=== PATIENT | male | born 1980 | race African-American/Black ===

== ENCOUNTER → 2017-08-28 | Outpatient (CLI) | payer MEDICAID ==
--- NOTE | 2017-08-28 09:26 | RADIOLOGY REPORT (SQ) ---
EXAM DESCRIPTION: KNEE LEFT 3 VIEWS COMPLETED DATE/TIME: 08/28/2017 8:59 am REASON FOR STUDY: POSTERIOR LEFT KNEE PAIN COMPARISON: None. NUMBER OF VIEWS: Three views left knee. LIMITATIONS: None. FINDINGS: No fracture or bone lesion. Maintained joint spaces. Moderate joint effusion. OTHER: No other significant finding. IMPRESSION: Joint effusion. Otherwise normal radiographs left knee. TECHNICAL DOCUMENTATION: JOB ID: [id number]
== END ==
LOC: OD 08:37
PROVIDERS: ATTEND Family Medicine
DX: M25.562 Pain in left knee (principal)

== ENCOUNTER 2017-09-28 19:15 | Emergency (ER) | payer BC ==
[2017-09-28 19:33] VITALS: BP 146/84
--- NOTE | 2017-09-28 20:56 | RADIOLOGY REPORT (SQ) ---
EXAM DESCRIPTION: CHEST PA/LAT COMPLETED DATE/TIME: 09/28/2017 8:47 pm REASON FOR STUDY: cp cough COMPARISON: None. EXAM PARAMETERS: NUMBER OF VIEWS: two views TECHNIQUE: Digital Frontal and Lateral radiographic views of the chest acquired. RADIATION DOSE: NA LIMITATIONS: none FINDINGS: LUNGS AND PLEURA: No opacities, masses or pneumothorax. No pleural effusion. MEDIASTINUM AND HILAR STRUCTURES: No masses or contour abnormalities. HEART AND VASCULAR STRUCTURES: Heart normal size. No evidence for failure. BONES: No acute findings. HARDWARE: None in the chest. OTHER: No other significant finding. IMPRESSION: NO SIGNIFICANT RADIOGRAPHIC FINDING IN THE CHEST. TECHNICAL DOCUMENTATION: JOB ID: [id number] [employer]- All Rights Reserved
--- NOTE | 2017-09-28 22:04 | ER Document Report ---
ED General - General Chief Complaint: Painful Cough Stated Complaint: PAINFUL TO BREATH Time Seen by Provider: 09/28/17 22:02 Notes: Patient is a pleasant 36-year-old male who presents with complaint of some pain in his chest whenever he coughs. Patient says he had coughing illness for several days. Now whenever he coughs or moves a certain way he gets pain over the substernal right side of his chest. He says he does not have the pain without coughing or movement. She said he did have some pain in his left leg over a month ago. He went to his primary care doctor and they arrange for an x- ray but he never got this obtained. He says that pain has been gone for a month now he has had no further pain. No swelling or edema in his legs. No history of PE or DVT. No other complaints at this time. TRAVEL OUTSIDE OF THE [place] IN LAST 30 DAYS: No - Related Data Allergies/Adverse Reactions: No Known Allergies Allergy (Verified 04/09/16 11:43) Past Medical History - Social History Smoking Status: Unknown if Ever Smoked Frequency of alcohol use: None Drug Abuse: None Family History: Reviewed & Not Pertinent Patient has suicidal ideation: No Patient has homicidal ideation: No Renal/ Medical History: Denies: Hx Peritoneal Dialysis - Immunizations Immunizations up to date: Yes Hx Diphtheria, Pertussis, Tetanus Vaccination: Yes - unknown Review of Systems - Review of Systems Notes: My Normal Review Basic REVIEW OF SYSTEMS: CONSTITUTIONAL : Denies fever, chills, or sweats. Denies recent illness. EENT: Denies eye, ear, throat, or mouth pain or symptoms. Denies nasal or sinus congestion. CARDIOVASCULAR: Pain with cough. RESPIRATORY: Pain in lungs when coughing. GASTROINTESTINAL: Denies abdominal pain. Denies nausea, vomiting, or diarrhea. Denies constipation. Last BM: LMP: MUSCULOSKELETAL: Denies neck or back pain or joint pain or swelling. SKIN: Denies rash or skin lesions. NEUROLOGICAL: Denies altered mental status or loss of consciousness. Denies headache. Denies weakness or paralysis or loss of use of either side. Denies problems with gait or speech. Denies sensory or motor loss. ALL OTHER SYSTEMS REVIEWED AND NEGATIVE. Physical Exam - Vital signs Vitals: Temp Pulse Resp BP Pulse Ox 99.1 F 74 20 146/84 H 95 09/28/17 19:30 01/16/18 19:30 09/28/17 19:30 09/28/17 19:30 09/28/17 19:30 - Notes Notes: General Appearance: Well nourished, alert, cooperative, no acute distress, no obvious discomfort. Well-appearing. Vitals: reviewed, See vital signs table. Head: no swelling or tenderness to the head Eyes: PERRL, EOMI, Conjuctiva clear Mouth: No decreasd moisture Neck: Supple, no neck tenderness, No thyromegaly Chest wall: Some reproducible pain to palpation of the right costochondral junction. Lungs: No wheezing, No rales, No rhonci, No accessory muscle use, good air exchange bilaterally. Heart: Normal rate, Regular rythm, No murmur, no rub Extremities: strength 5/5 in all extremities, good pulses in all extremities, no swelling or tenderness in the extremities, no edema. Skin: warm, dry, appropriate color, no rash Neuro: speech clear, oriented x 3, normal affect, responds appropriately to questions. Course - Re-evaluation Re-evalutation: 09/29/17 05:42 Patient's pain seems very consistent with that of pleurisy and may be some costochondritis as well. I do not suspect PE. Pain started after patient still having coughing. Patient does not have tachycardia tachypnea or hypoxemia. I feel the patient safe to be discharged home. Encouraged him to return to ER if he has worsening pain or feels unwell. Patient agrees with plan will be discharged home. Dictation of this chart was performed using voice recognition software; therefore, there may be some unintended grammatical errors. - Vital Signs Vital signs: Temp Pulse Resp BP Pulse Ox 99.1 F 74 20 146/84 H 95 09/28/17 19:30 09/28/17 19:30 09/28/17 19:30 09/28/17 19:30 09/28/17 19:30 - EKG Interpretation by Me Additional EKG results interpreted by me: 09/28/17 22:02 EKG is reviewed and interpreted by me. EKG shows normal sinus rhythm rate of [address] segment elevation or depression. No ischemic T-wave inversions. [place] interval, QRS duration, QTc intervals are within normal range. No old EKG available for comparison. Discharge - Discharge Disposition: HOME, SELF-CARE Additional Instructions: Pleurisy Your chest pain has been diagnosed as pleuritis (pleurisy). This is an inflammation of the surface of the lung tissue. It can be caused by a virus or , occasionally, old scar tissue. It is painful but, for the most part, not a serious problem. This pain is usually made worse by deep breathing, coughing, or sudden movements of the upper body or arms. The treatment is relief of symptoms. It includes rest, antiinflammatory medication, and pain medicine. Resolution of the pain is usually rapid once antiinflammatory medication is started. Warning signs of a more serious problem include: a fever, shortness of breath, pain that radiates to your jaw, shoulders or arms, or coughing up bloody sputum. If any of these symptoms occur, call the physician at once. Please stop smoking. Please follow up with a doctor in 2-3 days for reevaluation. Please return to the ER immediately if you develop worsening pain , fevers, vomiting, or feel unwell. Prescriptions: Prednisone [Deltasone 20 mg Tablet] 3 tab PO DAILY 4 Days tablet Forms: Return to Work
[2017-09-28] MEDS ORDERED: PREDNISONE 20 MG TABLET PO ONE (22:22)
--- NOTE | 2017-09-29 23:14 | EKG REPORT ---
SEVERITY:- NORMAL ECG - SINUS RHYTHM : Confirmed by: Quang Ballesteros 29-Sep-2017 23:14:31
== END 2017-09-28 22:36 | disposition home or self-care (01) ==
LOC: ER 19:15
DX: R05 Cough (principal); R06.00 Dyspnea, unspecified
CPT/HCPCS: 71046; 93005; 93010; 99283

== ENCOUNTER 2017-11-09 09:51 | Emergency (ER) | payer SELFPAY ==
[2017-11-09] MEDS ORDERED: ONDANSETRON 4 MG TAB.RAPDIS PO ONE (10:39)
--- NOTE | 2017-11-09 10:39 | ER Document Report ---
ED General - General Chief Complaint: Vomiting Stated Complaint: NAUSEA/ COLD SYMPTOMS Time Seen by Provider: 11/09/17 10:32 Mode of Arrival: Ambulatory Information source: Patient Notes: 37-year-old male presents with complaints of 2 episodes of vomiting with left lower quadrant abdominal cramping sensation. Patient notes multiple people at work have had similar GI issues. He denies any fevers or chills he denies any heavy vomiting or diarrhea at this time. Patient notes that the symptoms will not worsen at this time. Patient was sent home from work TRAVEL OUTSIDE OF THE [place] IN LAST 30 DAYS: No - HPI Onset: Just prior to arrival Onset/Duration: Sudden Quality of pain: Cramping Severity: Mild Pain Level: 1 Associated symptoms: Nausea, Vomiting Exacerbated by: Denies Relieved by: Denies Similar symptoms previously: No Recently seen / treated by doctor: No - Related Data Allergies/Adverse Reactions: No Known Allergies Allergy (Verified 11/09/17 09:53) Past Medical History - Social History Smoking Status: Current Every Day Smoker Cigarette use (# per day): Yes Chew tobacco use (# tins/day): No Smoking Education Provided: No Frequency of alcohol use: Occasional Drug Abuse: Marijuana Family History: Reviewed & Not Pertinent Patient has suicidal ideation: No Patient has homicidal ideation: No Renal/ Medical History: Denies: Hx Peritoneal Dialysis - Immunizations Immunizations up to date: Yes Hx Diphtheria, Pertussis, Tetanus Vaccination: Yes - unknown Review of Systems - Review of Systems Notes: REVIEW OF SYSTEMS: CONSTITUTIONAL : Denies fever, chills, or sweats. Denies recent illness. EENT: Denies eye, ear, throat, or mouth pain or symptoms. Denies nasal or sinus congestion or discharge. Denies throat, tongue, or mouth swelling or difficulty swallowing. CARDIOVASCULAR: Denies chest pain. Denies palpitations or racing or irregular heart beat. Denies ankle edema. RESPIRATORY: Denies cough, cold, or chest congestion. Denies shortness of breath, difficulty breathing, or wheezing. GASTROINTESTINAL: admits to nausea vomiting GENITOURINARY: Denies difficulty urinating, painful urination, burning, frequency, blood in urine, or discharge. MUSCULOSKELETAL: Denies back or neck pain or stiffness. Denies joint pain or swelling. SKIN: Denies rash, lesions or sores. HEMATOLOGIC : Denies easy bruising or bleeding. LYMPHATIC: Denies swollen, enlarged glands. NEUROLOGICAL: Denies confusion or altered mental status. Denies passing out or loss of consciousness. Denies dizziness or lightheadedness. Denies headache. Denies weakness or paralysis or loss of use of either side. Denies problems with gait or speech. Denies sensory loss, numbness, or tingling. Denies seizures. PSYCHIATRIC: Denies anxiety or stress. Denies depression, suicidal ideation, or homicidal ideation. ALL OTHER SYSTEMS REVIEWED AND NEGATIVE. Dictation was performed using [employer] voice recognition software PHYSICAL EXAMINATION: GENERAL: Well-appearing, well-nourished and in no acute distress. HEAD: Atraumatic, normocephalic. EYES: Pupils equal round and reactive to light, extraocular movements intact, sclera anicteric, conjunctiva are normal. ENT: Nares patent, oropharynx clear without exudates. Moist mucous membranes. NECK: Normal range of motion, supple without lymphadenopathy LUNGS: Breath sounds clear to auscultation bilaterally and equal. No wheezes rales or rhonchi. HEART: Regular rate and rhythm without murmurs ABDOMEN: Soft, nontender, nondistended abdomen. No guarding, no rebound. No masses appreciated. Musculoskeletal: Normal range of motion, no pitting or edema. No cyanosis. NEUROLOGICAL: Cranial nerves grossly intact. Normal speech, normal gait. Normal sensory, motor exams PSYCH: Normal mood, normal affect. SKIN: Warm, Dry, normal turgor, no rashes or lesions noted. Course - Re-evaluation Re-evalutation: 11/09/17 10:39 pts presentation is quite benign, he is no distress, looks well, will treat him symptomatically at this time pt will be treated with bentyl and zofran After performing a Medical Screening Examination, I estimate there is LOW risk for ACUTE APPENDICITIS, BOWEL OBSTRUCTION, ACUTE CHOLECYSTITIS, PERFORATED DIVERTICULITIS, INCARCERATED HERNIA, PANCREATITIS, TESTICULAR TORSION or PERFORATED ULCER, thus I consider the discharge disposition reasonable. Also, there is no evidence or peritonitis, sepsis, or toxicity. I have reevaluated this patient multiple times and no significant life threatening changes are noted. The patient and I have discussed the diagnosis and risks, and we agree with discharging home with close follow-up with the understanding that symptoms and presentations can change. We also discussed returning to the Emergency Department immediately if new or worsening symptoms occur. We have discussed the symptoms which are most concerning (e.g., bloody stool, fever, changing or worsening pain, intractable vomiting - standard verbal up date) that necessitate immediate return. Discharge - Discharge Clinical Impression: Abdominal cramping Nausea & vomiting Qualifiers: Vomiting type: unspecified Vomiting Intractability: non-intractable Qualified Code(s): R11.2 - Nausea with vomiting, unspecified Condition: Stable Disposition: HOME, SELF-CARE Instructions: Antinausea Medication ([facility]) Additional Instructions: Follow up with your physician tomorrow for further care or return to the ED IMMEDIATELY if symptoms worsen or new concerns occur. If you cannot afford to follow up with your primary care physician a list of low cost clinics have been provided at the end of your discharge papers as well. Prescriptions: Dicyclomine HCl [Bentyl 20 mg Tablet] 20 mg PO QID #40 tablet Ondansetron [Zofran Odt 4 mg Tablet] 1 - 2 tab PO Q4H PRN #15 tab.rapdis PRN Reason: For Nausea/Vomiting Forms: Return to Work
== END 2017-11-09 10:44 | disposition home or self-care (01) ==
LOC: ER 09:51
DX: R11.2 Nausea with vomiting, unspecified (principal); R10.32 Left lower quadrant pain; F17.210 Nicotine dependence, cigarettes, uncomplicated
CPT/HCPCS: 99283; S0119

== ENCOUNTER 2018-02-18 14:13 | Emergency (ER) | payer SELFPAY ==
[2018-02-18] MEDS ORDERED: IBUPROFEN 800 MG TABLET PO ONE (15:08)
--- NOTE | 2018-02-18 15:08 | ER Document Report ---
ED Hip Pain/Injury - General Chief Complaint: Groin Pain Stated Complaint: RIGHT LEG PAIN/GROIN PAIN Time Seen by Provider: 02/18/18 14:28 Notes: 37-year-old male to the emergency department chief complaint of right hip pain/ groin pain. Patient states that symptoms have been on and off but getting worse over the last 2 years. Today he almost fell when he felt a little catch in the right hip. Sometimes it radiates down into the right testicle region but not today. Denies any previous injuries or surgery to the right hip. Denies any fever, chills, sweats. Denies any other major symptoms at this time. Denies any testicular swelling TRAVEL OUTSIDE OF THE [place] IN LAST 30 DAYS: No - HPI Patient complains to provider of: Pain - Related Data Allergies/Adverse Reactions: No Known Allergies Allergy (Verified 02/18/18 14:14) Past Medical History - General Information source: Patient - Social History Smoking Status: Current Every Day Smoker Cigarette use (# per day): Yes Smoking Education Provided: Yes Frequency of alcohol use: None Drug Abuse: None Lives with: Spouse/Significant other Family History: Reviewed & Not Pertinent Patient has suicidal ideation: No Patient has homicidal ideation: No Renal/ Medical History: Denies: Hx Peritoneal Dialysis - Immunizations Immunizations up to date: Yes Hx Diphtheria, Pertussis, Tetanus Vaccination: Yes - unknown Review of Systems - Review of Systems Constitutional: No symptoms reported EENT: No symptoms reported Cardiovascular: No symptoms reported Respiratory: No symptoms reported Gastrointestinal: No symptoms reported Genitourinary: No symptoms reported Male Genitourinary: No symptoms reported Musculoskeletal: See HPI, Other - Right groin, right hip pain Skin: No symptoms reported Hematologic/Lymphatic: No symptoms reported Neurological/Psychological: No symptoms reported Physical Exam - Vital signs Vitals: Temp Pulse Resp BP Pulse Ox 99.2 F 67 16 138/73 H 96 02/18/18 14:18 02/18/18 14:18 02/18/18 14:18 02/18/18 14:18 02/18/18 14:18 Interpretation: Normal - General General appearance: Appears well, Alert - HEENT Head: Normocephalic, Atraumatic Eyes: Normal Pupils: PERRL - Respiratory Respiratory status: No respiratory distress Chest status: Nontender Breath sounds: Normal Chest palpation: Normal - Cardiovascular Rhythm: Regular Heart sounds: Normal auscultation Murmur: No - Abdominal Inspection: Normal Distension: No distension Bowel sounds: Normal Tenderness: Nontender Organomegaly: No organomegaly - Genitourinary Inspection: Normal Tenderness: Nontender Cremasteric reflex: Normal Scrotum: Normal Notes: No palpable hernias. There is mild tenderness to palpation in the right inguinal/right groin region around the muscles in the hip socket - Back Back: Normal, Nontender - Extremities General upper extremity: Normal inspection, Nontender, Normal color, Normal ROM , Normal temperature General lower extremity: Normal inspection, Normal color, Normal ROM, Normal temperature, Normal weight bearing, Other - Tenderness to palpation in the right anterior hip joint. No: Fernando's sign - Neurological Neuro grossly intact: Yes Cognition: Normal Orientation: AAOx4 Kg Coma Scale Eye Opening: Spontaneous Kg Coma Scale Verbal: Oriented Kg Coma Scale Motor: Obeys Commands Kg Coma Scale Total: 15 Speech: Normal Motor strength normal: LUE, RUE, LLE, RLE Sensory: Normal - Psychological Associated symptoms: Normal affect, Normal mood - Skin Skin Temperature: Warm Skin Moisture: Dry Skin Color: Normal Course - Re-evaluation Re-evalutation: 02/18/18 17:03 X-rays reveal abnormal right hip with concerns for some impingement. Patient able to ambulate. Will need follow-up with orthopedic explained this to the patient. At this time will DC with orthopedic follow-up. 02/18/18 17:09 Hip/Pelvis X-Ray 02/18/18 15:08 IMPRESSION: NO RADIOGRAPHIC EVIDENCE OF ACUTE INJURY. 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 Clinical correlation is recommended. Other findings as noted above. - Vital Signs Vital signs: Temp Pulse Resp BP Pulse Ox 99.2 F 67 16 138/73 H 96 02/18/18 14:18 02/18/18 14:18 02/18/18 14:18 02/18/18 14:18 02/18/18 14:18 Discharge - Discharge Clinical Impression: Right hip pain Condition: Good Disposition: HOME, SELF-CARE Additional Instructions: Right hip pain These follow-up with orthopedic surgery for further evaluation of your hip. In the event you begin developing worsening symptoms especially if you develop fever, chills, abdominal pain, testicle pain or any other concerns please return immediately. Prescriptions: Ibuprofen [Motrin 800 mg Tablet] 800 mg PO Q8H PRN 10 Days #30 tab PRN Reason: Tramadol HCl [Ultram 50 mg Tablet] 50 mg PO Q8H PRN 5 Days #20 tab PRN Reason: For Pain Scale 3-4 Forms: Return to Work Referrals: ASHWIN BEJARANO DO [ACTIVE STAFF] - Follow up in 1 week
--- NOTE | 2018-02-18 16:51 | RADIOLOGY REPORT (SQ) ---
EXAM DESCRIPTION: HIP RIGHT AP/LATERAL COMPLETED DATE/TIME: 02/18/2018 4:37 pm REASON FOR STUDY: pain COMPARISON: None. NUMBER OF VIEWS: Two views. TECHNIQUE: AP pelvis and additional frog-leg view of the right hip. LIMITATIONS: None. FINDINGS: MINERALIZATION: Normal RIGHT HIP: No fracture or dislocation. A small bony protuberance is identified at the level of the f emoral head which could be related to an osteophyte or tiny osteochondroma. There is a convex contou r at the junction of the right femoral head neck which could be related to a CAM type hip impingement . There is bony sclerosis with an associated lucency in the acetabulum consistent with degenerative changes. Clinical correlation is recommended LEFT HIP: No fracture or dislocation. There are similar but less pronounced changes in the left hip articulation which could be related to a CAM type hip impingement. PUBIS AND ISCHIUM: No fracture. PELVIS: No fracture. SACRUM: No fracture or dislocation. No worrisome bone lesions. LOWER LUMBAR SPINE: No fracture or dislocation. No worrisome bone lesions. No significant disc disea se. SOFT TISSUES: No findings. OTHER: No other significant finding. IMPRESSION: NO RADIOGRAPHIC EVIDENCE OF ACUTE INJURY. Findings suggestive of CAM type hip impingem ent as noted above. Clinical correlation is recommended. Other findings as noted above. TECHNICAL DOCUMENTATION: JOB ID: [id number] [employer]- All Rights Reserved Reading location - IP/workstation name: [email or web address]
[2018-02-18 17:13] VITALS: BP 146/97
== END 2018-02-18 17:13 | disposition home or self-care (01) ==
LOC: ER 14:13
DX: M25.551 Pain in right hip (principal); N50.811 Right testicular pain; F17.210 Nicotine dependence, cigarettes, uncomplicated
CPT/HCPCS: 99283